=== PATIENT | male | born 1945 | race Caucasian/White ===

== ENCOUNTER 2018-03-11 07:01 | Emergency (ER) | payer OTHER ==
[~2018-03-11] VITALS: Ht 172.7 cm; Wt 93.3 kg
[~2018-03-11 07:01] MED LIST: ACETAMINOPHEN650 M6 PO; HYDRODIURIL,O12.5 M2; PROTONIX40 MG PO; TOPROL XL50 MG PO; TRICOR145 MG PO; ZESTRIL,PRINIVI40 M1 PO
[2018-03-11 07:53] LABS: BASOPHIL (%) 0.4 % (0-1); EOSINOPHIL (%) 1.1 % (0-5); EOSINOPHIL COUNT 0.1 K/uL (0-0.3); HEMATOCRIT 48.8 % (38.0-50.0); HEMOGLOBIN 16.9 G/DL (12.5-16.6); IMMATURE GRANULOCYTE (%) 0.4 % (0.0-0.7); LYMPHOCYTE (%) 13.2 % (15-42); LYMPHOCYTE COUNT 1.4 K/uL (1.0-2.8); MCH 28.6 PG (29.0-34.0); MCHC 34.6 G/DL (30.0-36.0); MCV 82.6 FL (86-99); MONOCYTE (%) 15.7 % (3-12); MONOCYTE COUNT 1.6 K/uL (0-0.8); NEUTROPHIL (%) 69.2 % (45-76); NEUTROPHIL COUNT 7.2 K/uL (1.8-6.4); PLATELET COUNT 272 K/uL (156-360); RBC DIS.WIDTH-CV 13.8 % (11.8-14.6); RBC DIS.WIDTH-SD 41.9 % (39-53); RED BLOOD COUNT 5.91 M/uL (4.00-5.50); WHITE BLOOD COUNT 10.4 K/uL (4.1-10.2)
[2018-03-11 08:15] LABS: CHLORIDE 96 MEQ/L (99-109); POTASSIUM 3.5 MEQ/L (3.7-5.4); SODIUM 135 MEQ/L (136-147)
[2018-03-11 08:20] LABS: CREATININE 1.5 MG/DL (0.6-1.3); GFR ESTIMATE (CALCULATED) 49 mL/min/ (58.99-99999); GLUCOSE 113 mg/dL (70-99); UREA NITROGEN (BUN) 66 mg/dL (9-23)
[2018-03-11 10:07] LABS: ALBUMIN 4.3 G/DL (3.2-4.8); DIRECT BILIRUBIN 0.3 mg/dL (0.0-0.3)
[2018-03-11 10:13] LABS: ALKALINE PHOSPHATASE 47 IU/L (3-129); ALT (GPT) 21 IU/L (3-49); AST (GOT) 18 IU/L (2-34); LIPASE 43 U/L (1.0-51.0); TOTAL PROTEIN 7.7 G/DL (6.4-8.3)
[2018-03-11] MEDS ORDERED: IMODIUM A-D2 M2 PO (11:07)
[2018-03-11] MEDS ORDERED: BENTYL20 MG PO (11:07)
[2018-03-11] MEDS ORDERED: ZOFRAN4 MG PO (11:07)
[2018-03-11 11:49] VITALS: BP 100/67
== END 2018-03-11 11:51 | disposition home or self-care (01) ==
LOC: EME 07:01
PROVIDERS: Emergency Medicine
DX: K80.50 Calculus of bile duct without cholangitis or cholecystitis without obstruction (principal); K52.9 Noninfective gastroenteritis and colitis, unspecified; E86.0 Dehydration; I10 Essential (primary) hypertension; E78.5 Hyperlipidemia, unspecified; K21.9 Gastro-esophageal reflux disease without esophagitis; Z85.9 Personal history of malignant neoplasm, unspecified; Z87.891 Personal history of nicotine dependence; Z90.49 Acquired absence of other specified parts of digestive tract; Z88.5 Allergy status to narcotic agent
CPT/HCPCS: 74176; 80048; 80076; 83690; 85025; 99281; 99284; J2405; J7030